=== PATIENT | male | born 1950 | race Caucasian/White ===

== ENCOUNTER 2017-12-15 11:29 | Outpatient (CLI) | payer MEDICARE ==
--- NOTE | 2017-12-15 12:31 | XRAY Report ---
THREE VIEW LEFT THUMB: 12/15/2017 CLINICAL INDICATION: Pain. FINDINGS: AP, lateral, oblique views of the left thumb demonstrate mild osteoarthritic changes of the first carpometacarpal joint, metacarpophalangeal joint, and interphalangeal joint. There is no evidence of acute fracture or dislocation. IMPRESSION: MILD OSTEOARTHRITIS. TD: 12/15/2017 12:30
== END 2017-12-15 11:30 | disposition home or self-care (01) ==
LOC: DI.S 11:29
PROVIDERS: ATTEND Internal Medicine
DX: M18.12 Unilateral primary osteoarthritis of first carpometacarpal joint, left hand (principal); M19.042 Primary osteoarthritis, left hand
CPT/HCPCS: 73140

== ENCOUNTER 2018-12-23 11:13 | Outpatient (CLI) | payer MEDICARE, OTHER | END 2018-12-23 11:14 | disposition home or self-care (01) | LOC: DI 11:13 | PROVIDERS: ATTEND Internal Medicine | DX: R39.9 Unspecified symptoms and signs involving the genitourinary system (principal); Z53.9 Procedure and treatment not carried out, unspecified reason ==

== ENCOUNTER 2021-02-24 16:29 | Outpatient (CLI) | payer MEDICARE ==
--- NOTE | 2021-02-24 17:57 | Ultrasound Report ---
PROCEDURE: Bladder ultrasound INDICATIONS: BPH with lower urinary tract symptoms TECHNIQUE: Real-time scanning was performed of the bladder, pre and post void. Image documentation wa s performed. Color Doppler ultrasound was also utilized. COMPARISON: None. FINDINGS: The prevoid bladder volume is 152 cc. The post void bladder volume is 37 cc. Both ureteral jets can be seen. The prostate is enlarged measuring 5.3 x 4.1 x 4.5 cm. IMPRESSION: Moderate post void residual, 37 cc. Enlarged prostate. Reviewed by: Moises Shrestha MD on 02/24/2021 4:56 PM [email or web address] Approved by: Moises Shrestha MD on 02/24/2021 4:56 PM [facility] Station ID: [id number]
== END 2021-02-24 16:30 | disposition home or self-care (01) ==
LOC: DI 16:29
PROVIDERS: ATTEND Internal Medicine
DX: N40.0 Benign prostatic hyperplasia without lower urinary tract symptoms (principal)

== ENCOUNTER 2021-06-04 16:37 | Outpatient (CLI) | payer MEDICARE | END 2021-06-04 16:38 | disposition home or self-care (01) | LOC: COV 16:37 | PROVIDERS: ATTEND Urology | DX: Z01.812 Encounter for preprocedural laboratory examination (principal); N40.1 Benign prostatic hyperplasia with lower urinary tract symptoms; Z20.822 Contact with and (suspected) exposure to COVID-19 ==

== ENCOUNTER 2021-12-20 12:13 | Outpatient (CLI) | payer MEDICARE | END 2021-12-20 12:14 | disposition critical access hospital (66) | LOC: EMS 12:13 | DX: R10.13 Epigastric pain (principal); R11.2 Nausea with vomiting, unspecified | CPT/HCPCS: A0425; A0427 ==

== ENCOUNTER 2021-12-20 12:45 | Emergency (ER) | payer MEDICARE ==
[2021-12-20] MEDS ORDERED: PROMETHAZINE INJ 25 MG in SODIUM CHLORIDE 0.9% 50 ML IV STA (13:10)
[2021-12-20] MEDS ORDERED: SODIUM CHLORIDE 0.9% 1,000 ML IV STA ×2 (13:10)
[2021-12-20 13:16] LABS: BASOPHILS % (AUTO) 0.3 %; HCT - HEMATOCRIT 43.9 % (42.0-52.0); HGB - HEMOGLOBIN 14.9 g/dL (14.0-18.0); LYMPHOCYTES # (AUTO) 0.6 10^3/uL (1.5-3.5); LYMPHOCYTES % (AUTO) 5.4 %; MEAN CORPUSCULAR HEMOGLOBIN 31.4 pg (27.0-31.0); MEAN CORPUSCULAR HGB CONC 33.9 g/dL (32.0-36.0); MEAN CORPUSCULAR VOLUME 92.6 fL (80.0-94.0); MEAN PLATELET VOLUME 9.7 fL (7.4-11.4); MONOCYTES # (AUTO) 0.7 10^3/uL (0.0-1.0); MONOCYTES % (AUTO) 6.1 %; NEUTROPHILS # (AUTO) 10.4 10^3/uL (1.5-6.6); NEUTROPHILS % (AUTO) 87.9 %; PLT - PLATELET COUNT 225 10^3/uL (130-450); RED BLOOD COUNT 4.74 10^6/uL (4.70-6.10); RED CELL DISTRIBUTION WIDTH 12.8 % (12.0-15.0); WHITE BLOOD COUNT 11.8 x10^3/uL (4.8-10.8)
--- NOTE | 2021-12-20 13:16 | ED Physician Documentation ---
History of Present Illness - Stated complaint Stated Complaint: N/V - Chief complaint Chief Complaint: Abd Pain - History obtained from History obtained from: Patient - History of Present Illness Timing: Last night Pain level max: 2 Pain level now: 1 - Additonal information Additional information: 71 year old male with epigastric, burning pain. Has had nausea and vomiting since this am. [facility]en at the [facility] and sent here by EMS for further eval. Patient states that he uses marijuana a few times a week to a few times per month for his back pain. He drinks beer at night. Does not use any other drugs. No recent travel. No recent antibiotics. No fevers. No chills. Review of Systems Ten Systems: 10 systems reviewed and negative Constitutional: denies: Fever, Chills Ears: denies: Ear pain Nose: denies: Rhinorrhea / runny nose, Congestion Throat: denies: Sore throat Cardiac: denies: Chest pain / pressure, Palpitations GI: reports: Abdominal Pain (burning, epigastric), Nausea, Vomiting. denies: Constipation, Diarrhea, Hematemesis, Bloody / black stool Skin: denies: Rash Musculoskeletal: denies: Neck pain, Back pain Neurologic: denies: Headache PD PAST MEDICAL HISTORY - Past Medical History Past Medical History: Yes Cardiovascular: High cholesterol : Benign prostate hypertrophy - Present Medications Home Medications: Ambulatory Orders Medication Instructions Recorded Confirmed Indomethacin [Indocin] 25 mg PO 12/20/21 Ondansetron Odt [Zofran] 4 mg TL Q6H PRN #10 tablet 12/20/21 Pantoprazole [Protonix] 12/20/21 Simvastatin [Zocor] 10 mg PO 12/20/21 Tamsulosin HCl [Flomax] 0.4 mg PO 12/20/21 - Allergies Allergies/Adverse Reactions: Allergies Allergy/AdvReac Type Severity Reaction Status Date / Time No Known Drug Allergies Allergy Verified 12/20/21 12:57 - Living Situation Living Situation: reports: With family Living Arrangement: reports: At home - Social History Does the pt smoke?: No Does the pt drink ETOH?: Yes ETOH Use: Beer Does the pt have substance abuse?: Yes Substance Use and Type: Marijuana - Family History Family history: reports: Non contributory PD ED PE NORMAL - Vitals Vital signs reviewed: Yes - General General: Alert and oriented X 3, No acute distress, Well developed/nourished - HEENT HEENT: PERRL, Moist mucous membranes, Pharynx benign - Neck Neck: Supple, no meningeal sign - Cardiac Cardiac: RRR, Strong equal pulses - Respiratory Respiratory: No respiratory distress, Clear bilaterally - Abdomen Abdomen: Soft, Non tender, Non distended - Derm Derm: Warm and dry - Extremities Extremities: No edema - Neuro Neuro: Alert and oriented X 3 - Psych Psych: Normal mood, Normal affect Results - Vitals Vitals: Vital Signs - 24 hr 12/20/21 12/20/21 12/20/21 12:53 12:59 14:18 Temperature 36.9 C Heart Rate 85 88 97 Respiratory 14 20 14 Rate Blood Pressure 136/124 H 172/81 H O2 Saturation 98 98 12/20/21 12/20/21 14:47 15:24 Temperature Heart Rate 94 90 Respiratory 14 20 Rate Blood Pressure 169/90 H O2 Saturation 96 Oxygen O2 Source Room air - EKG (time done) 1334 Rate: Rate (enter#) (97) Rhythm: NSR [place]: Normal Intervals: Normal SD QRS: Normal Ischemia: Normal ST segments (j point elevation, no ischemia) - Labs Labs: Laboratory Tests 12/20/21 12/20/21 12/20/21 13:12 13:12 13:12 WBC 11.8 H RBC 4.74 Hgb 14.9 Hct 43.9 MCV 92.6 MCH 31.4 H MCHC 33.9 RDW 12.8 Plt Count 225 MPV 9.7 Neut # (Auto) 10.4 H Lymph # (Auto) 0.6 L Ross # (Auto) 0.7 Eos # (Auto) 0.0 Baso # (Auto) 0.0 Absolute Nucleated RBC 0.00 Nucleated RBC % 0.0 Sodium 134 L Potassium 3.6 Chloride 99 L Carbon Dioxide 25 Anion Gap 10.0 BUN 15 Creatinine 0.9 Estimated GFR (MDRD) 83 L Glucose 141 H Calcium 9.0 Total Bilirubin 0.9 AST 21 ALT 18 Alkaline Phosphatase 57 Troponin I High Sens 2.9 Total Protein 7.5 Albumin 4.4 Globulin 3.1 Albumin/Globulin Ratio 1.4 Lipase 30 Urine Color Urine Clarity Urine pH Ur Specific [place] Urine Protein Urine Glucose (UA) Urine Ketones Urine Occult Blood Urine Nitrite Urine Bilirubin Urine Urobilinogen Ur Leukocyte Esterase Ur Microscopic Review Urine Culture Comments 12/20/21 13:33 WBC RBC Hgb Hct MCV MCH MCHC RDW Plt Count MPV Neut # (Auto) Lymph # (Auto) Ross # (Auto) Eos # (Auto) Baso # (Auto) Absolute Nucleated RBC Nucleated RBC % Sodium Potassium Chloride Carbon Dioxide Anion Gap BUN Creatinine Estimated GFR (MDRD) Glucose Calcium Total Bilirubin AST ALT Alkaline Phosphatase Troponin I High Sens Total Protein Albumin Globulin Albumin/Globulin Ratio Lipase Urine Color YELLOW Urine Clarity CLEAR Urine pH 8.5 H Ur Specific [place] 1.020 Urine Protein NEGATIVE Urine Glucose (UA) NEGATIVE Urine Ketones 40 H Urine Occult Blood NEGATIVE Urine Nitrite NEGATIVE Urine Bilirubin NEGATIVE Urine Urobilinogen 0.2 (NORMAL) Ur Leukocyte Esterase NEGATIVE Ur Microscopic Review NOT INDICATED Urine Culture Comments NOT INDICATED - Rads (name of study) cxr Radiology: Final report received, EMP read contemporaneously, See rad report PD MEDICAL DECISION MAKING - ED course Complexity details: reviewed results, re-evaluated patient, considered differential, d/w patient ED course: Patient is well-appearing, nontoxic. Afebrile. No acute findings on x-ray. No acute lab abnormalities. Feels much better after Zofran and IV fluids. Tolerating p.o. without difficulty here. Likely viral illness. We will continue antiemetics at home and have him follow-up with his doctor as needed for further care. Abdomen remains soft, nontender nondistended on serial exam. Patient counseled regarding signs and symptoms for which I believe and urgent re-evaluation would be necessary. Patient with good understanding of and agreement to plan and is comfortable going home at this time This document was made in part using voice recognition software. While efforts are made to proofread this document, sound alike and grammatical errors may occur. Departure - Departure Disposition: Home, Self Care Clinical Impression: Vomiting Qualifiers: Vomiting type: unspecified Nausea presence: with nausea Qualified Code(s): R11.2 - Nausea with vomiting, unspecified Condition: Good Instructions: ED Nausea Vomiting Follow-Up: Albin Alberto MD [Primary Care Provider] - Within 1 week Prescriptions: Ondansetron Odt [Zofran] 4 mg TL Q6H PRN #10 tablet PRN Reason: Nausea / Vomiting Comments: Follow up with your doctor for further care. Return if you worsen. Your prescription was sent to [facility] in [place]. This is likely a viral illness and will likely resolve on its own. Discharge Date/Time: 12/20/21 15:31
[2021-12-20] MEDS ORDERED: PROMETHAZINE 25 MG/1 ML VIAL ONE (13:27)
[2021-12-20 13:37] LABS: ALBUMIN 4.4 g/dL (3.2-5.5); ALBUMIN/GLOBULIN RATIO 1.4 (1.0-2.2); BILIRUBIN,TOTAL 0.9 mg/dL (0.2-1.0); CREATININE 0.9 mg/dL (0.6-1.2); POTASSIUM 3.6 mmol/L (3.5-5.0); TOTAL PROTEIN 7.5 g/dL (6.7-8.2)
--- NOTE | 2021-12-20 13:45 | XRAY Report ---
PROCEDURE: Chest 1 View X-Ray INDICATIONS: chest pain TECHNIQUE: One view of the chest was acquired. COMPARISON: Chest pain. FINDINGS: SUPPORT DEVICES: None. LUNGS/PLEURA: No focal consolidation, pleural effusion or space-occupying pneumothorax. MEDIASTINUM: The cardiomediastinal silhouette is within normal limits. BONES/SOFT TISSUES: No acute abnormality. IMPRESSION: 1.No acute cardiopulmonary abnormality. Reviewed by: Riki Aparicio MD on 12/20/2021 1:43 PM [facility] Approved by: Riki Aparicio MD on 12/20/2021 1:43 PM [facility] Station ID: [id number]
[2021-12-20 14:03] LABS: BILIRUBIN,URINE NEGATIVE (NEGATIVE); CLARITY,URINE CLEAR (CLEAR); GLUCOSE, URINE (UA) NEGATIVE (NEGATIVE); KETONES,URINE (UA) 40 mg/dL (NEGATIVE); LEUKOCYTE ESTERASE, URINE NEGATIVE (NEGATIVE); NITRITE,URINE NEGATIVE (NEGATIVE); OCCULT BLOOD,URINE NEGATIVE (NEGATIVE); PH,URINE 8.5 PH (5.0-7.5); PROTEIN,URINE NEGATIVE (NEGATIVE); UROBILINOGEN,URINE 0.2 (NORMAL) E.U./dL (NORMAL)
[2021-12-20 14:48] VITALS: BP 169/90
== END 2021-12-20 15:31 | disposition home or self-care (01) ==
LOC: EDUNIT# → ED 12:45
DX: R11.2 Nausea with vomiting, unspecified (principal)
CPT/HCPCS: 36415; 71045; 80053; 81003; 83690; 84484; 85025; 93005; 96361; 96365; 99284; J7040; 81001; 87086

== ENCOUNTER 2022-01-17 12:04 | Outpatient (CLI) | payer MEDICARE ==
[2022-01-17] MEDS ORDERED: IOVERSOL 320 50 ML VIAL ONE (12:19)
[2022-01-17] MEDS ORDERED: IOVERSOL 320 100 ML VIAL IVP ONE ×3 (12:20→14:08)
[2022-01-17] MEDS ORDERED: IOVERSOL 320 50 ML VIAL PO ONE (14:09)
--- NOTE | 2022-01-17 14:18 | CT Report ---
PROCEDURE: Abdomen/Pelvis W INDICATIONS: ABD PAIN CONTRAST: IV CONTRAST: Optiray 320 ml: 100 PO CONTRAST: Optiray 320 ml50 TECHNIQUE: After the administration of contrast, 5 mm thick sections acquired from the diaphragms to the sym physis. 5 mm thick coronal and sagittal reformats were acquired. For radiation dose reduction, the following was used: automated exposure control, adjustment of mA and/or kV according to patient size . COMPARISON: None. FINDINGS: Image quality: Excellent. ABDOMEN: Lung bases: Lung bases are clear. Heart size is normal. Solid organs: Liver and spleen are normal in size and enhancement. Findings are highly suspicious fo r gallbladder carcinoma. There is significant thickening of the fundus with possible invasion of the subjacent liver. Biliary system is non dilated. Pancreas enhances normally. No adrenal nodules. Ki dneys demonstrate normal size and enhancement, without hydronephrosis. Peritoneum and bowel: Bowel loops demonstrate normal wall thickness and caliber. No free fluid or a ir. Sigmoid diverticulosis without evidence of diverticulitis. Nodes and vessels: No retroperitoneal or mesenteric adenopathy by size criteria. Aorta and inferior vena cava are normal in size. Miscellaneous: No ventral hernias. PELVIS: Genitourinary: Bladder wall thickness is normal. Prostate implant seeds. Miscellaneous: Small fat-containing inguinal hernias bilaterally. No inguinal adenopathy. Bones: No suspicious bony lesions. No vertebral body compression fractures. Extensive lumbar degen erative change. A disc protrusion at L1-L2 contributes to canal stenosis. IMPRESSION: 1. 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 2. Prostate implant seeds. No evidence of metastatic prostate carcinoma. 3. Sigmoid diverticulosis. Above discussed with for Sergio, the executive receptionist for Dr. Albin Alberto at the time of dictation on 2021 at 1416 hours. Reviewed by: Hi Mo MD on 01/17/2022 2:16 PM PDT Approved by: Hi Mo MD on 01/17/2022 2:16 PM PDT Station ID: [id number]
== END 2022-01-17 12:05 | disposition home or self-care (01) ==
LOC: DI 12:04
PROVIDERS: ATTEND Internal Medicine
DX: R10.9 Unspecified abdominal pain (principal); R93.3 Abnormal findings on diagnostic imaging of other parts of digestive tract; K57.30 Diverticulosis of large intestine without perforation or abscess without bleeding
CPT/HCPCS: 74177; Q9967

== ENCOUNTER 2023-05-28 10:05 | Outpatient (CLI) | payer MEDICARE ==
--- NOTE | 2023-05-28 11:39 | XRAY Report ---
PROCEDURE: Neck Soft Tissue INDICATIONS: S/P HYPOGLOSSAL NERVE STIMULATOR TECHNIQUE: 2 views of the neck were acquired. COMPARISON: 2 FINDINGS: Airway: The airway appears patent. Soft tissues: Prevertebral soft tissues are normal in thickness. The epiglottis and aryepiglottic f olds appear normal. No soft tissue gas. Right chest wall generator and right subglottal stimulator present. Bones: No suspicious bony lesions. Visualized cervical spine is normally aligned. IMPRESSION: Right chest wall generator and right subglottal stimulator present without complication. Reviewed by: Kevin Haley on 05/28/2023 11:38 AM PDT Approved by: Kevin Haley on 05/28/2023 11:38 AM PDT Station ID: [id number]
== END 2023-05-28 10:06 | disposition home or self-care (01) ==
LOC: DI.S 10:05
DX: G47.33 Obstructive sleep apnea (adult) (pediatric) (principal); Z96.82 Presence of neurostimulator

== ENCOUNTER 2024-01-12 13:22 | Outpatient (CLI) | payer MEDICARE ==
--- NOTE | 2024-01-12 17:34 | Ultrasound Report ---
PROCEDURE: Testicle INDICATIONS: LEFT TESTICULAR PAIN TECHNIQUE: Real-time scanning was performed of the scrotum and testicles, with image documentation. Color and p ulse Doppler interrogation was performed of both testicles. COMPARISON: CT abdomen pelvis 01/17/2022. FINDINGS: Right: Testicle is normal in size at 4.3 x 4 x 2.4 cm, and homogenous in echotexture. Small anechoic cysts measuring 0.4 cm and 0.6 cm. Epididymis is normal in overall size and morphology. Small hydro avani. No varicoceles. Overlying scrotal skin is normal in thickness. Left: Testicle is normal in size at 4.6 x 3.7 x 2.2 cm, and homogeneous in echotexture. Epididymis is normal in overall size and morphology. Small hydrocele. No varicoceles. Overlying scrotal skin i s normal in thickness. Doppler: Color and pulse Doppler demonstrate normal and symmetric arterial flow in both testicles. IMPRESSION: 1. No epididymitis appreciated. No torsion. 2. No testicular mass. Subcentimeter cysts in the right testicle. 3. Small bilateral hydroceles. No varicocele. Reviewed by: Isaac Jiang MD on 01/12/2024 5:33 PM PDT Approved by: Isaac Jiang MD on 01/12/2024 5:33 PM PDT Station ID: [id number]
== END 2024-01-12 13:23 | disposition home or self-care (01) ==
LOC: DI 13:22
PROVIDERS: ATTEND Internal Medicine
DX: N44.2 Benign cyst of testis (principal); N43.3 Hydrocele, unspecified

== ENCOUNTER 2024-01-12 14:34 | Outpatient (CLI) | payer MEDICARE ==
--- NOTE | 2024-01-12 15:53 | XRAY Report ---
PROCEDURE: Chest 2V INDICATIONS: WHEEZING TECHNIQUE: 2 views of the chest were acquired. COMPARISON: None. FINDINGS: Surgical changes and devices: Wireless pacemaker power pack projecting over the right chest. Several surgical clips in the right upper quadrant of the abdomen. Lungs and pleura: Mildly coarse interstitial markings and perihilar regions bilaterally. Mild bronch ial wall thickening seen primarily in the infrahilar regions bilaterally. No dense airspace consolida tion, effusion, or pneumothorax. Mediastinum: Mediastinal contours appear normal. Heart size is normal. Bones and chest wall: No suspicious bony lesions. Overlying soft tissues appear unremarkable. IMPRESSION: Interstitial thickening and bronchial wall thickening bilaterally suggesting bronchitis or reactive a irways disease, acute/and/or chronic. No focal airspace disease to suggest pneumonia. Reviewed by: Jennie Marie MD on 01/12/2024 3:52 PM PDT Approved by: Jennie Marie MD on 01/12/2024 3:52 PM PDT Station ID: [id number]
== END 2024-01-12 14:35 | disposition home or self-care (01) ==
LOC: DI 14:34
PROVIDERS: ATTEND Internal Medicine
DX: R91.8 Other nonspecific abnormal finding of lung field (principal)